=== PATIENT | male | born 1980 | race Caucasian/White ===

== ENCOUNTER 2023-05-08 08:45 | Emergency (ER) | payer SELFPAY ==
[2023-05-08 08:54] VITALS: BP 156/85; PULSE 98; RESP 18; TEMP 98.3; BMI 31.5
[2023-05-08] MEDS ORDERED: ACETAMINOPHEN 325 MG TABLET (FP) ONE (09:53)
[2023-05-08] MEDS ORDERED: LORATADINE 10 MG TABLET PO ONE (09:53)
[2023-05-08] MEDS ORDERED: LORATADINE 10 MG TABLET ONE (09:54)
[2023-05-08] MEDS ORDERED: ACETAMINOPHEN 325 MG TABLET (FP) PO ONE (09:54)
== END 2023-05-08 10:41 | disposition home or self-care (01) ==
LOC: JER 08:45
DX: T63.441A Toxic effect of venom of bees, accidental (unintentional), initial encounter (principal)
CPT/HCPCS: 99283-25